=== PATIENT | male | born 1960 | race Caucasian/White ===

== ENCOUNTER 2018-09-14 10:17 | Emergency (ER) | payer OTHER ==
--- NOTE | 2018-09-14 10:35 | ED ---
Abdominal Pain/Male - HPI Summary HPI Summary: A 58 y/o M presents to ED with c/o suprapubic abd pain onset a week ago. The pain had been constant previous, but is now more intermittent. The pain radiates to his testicles and at certain times into his penis. Associated: v/d a week ago. Denies: CP, SOB, rash, swelling in legs, pain with BM, dysuria, hematuria. He saw Dr. Tobin, PCP, two days ago. He was supposed to be scheduled for a CT scan but it has not happened yet. Abd surgeries include partial colon removal, cholecystectomy. - History of Current Complaint Chief Complaint: EDAbdPain Stated Complaint: ABD PAIN PER PT Time Seen by Provider: 09/14/18 10:31 Hx Obtained From: Patient, Medical Records Onset/Duration: Gradual Onset, Lasting Weeks, Still Present Timing: Constant - at onset Severity Initially: Severe Severity Currently: Moderate Pain Intensity: 5 Pain Scale Used: 0-10 Numeric Location: Suprapubic Radiates: Yes Radiates to: Other - testicles, penis Associated Signs And Symptoms: Positive: Vomiting, Diarrhea, Other - neg: : SOB , rash, swelling in legs, pain with BM. Negative: Chest Pain, Urinary Symptoms - Allergies/Home Medications Allergies/Adverse Reactions: Allergies Allergy/AdvReac Type Severity Reaction Status Date / Time No Known Allergies Allergy Verified 09/14/18 10:25 Home Medications: Home Medications Citalopram Hydrobromide [Citalopram HBr] 40 mg PO DAILY 09/14/18 [History Confirmed 09/14/18] Fenofibrate [Tricor] 54 mg PO DAILY 09/14/18 [History Confirmed 09/14/18] Fenofibric Acid (Nf) [Fenofibric Acid] 1 cap PO DAILY 09/14/18 [History Confirmed 09/14/18] Losartan Potassium 25 mg PO DAILY 09/14/18 [History Confirmed 09/14/18] glipiZIDE [Glipizide ER] 10 mg PO DAILY 09/14/18 [History Confirmed 09/14/18] PMH/Surg Hx/FS Hx/Imm Hx Previously Healthy: No Endocrine/Hematology History: Reports: Hx Diabetes Cardiovascular History: Reports: Hx Hypercholesterolemia Denies: Hx Congestive Heart Failure, Hx Hypertension, Hx Pacemaker/ICD GI History: Reports: Hx Diverticulosis - partial colectomy, Hx Gall Bladder Disease - cholecystectomy, Other GI Disorders - colonic polyps, divertiulosis History: Reports: Other Problems/Disorders - diabetes Sensory History: Denies: Hx Hearing Aid Neurological History: Reports: Other Neuro Impairments/Disorders - present confused, fatique, numbness face Psychiatric History: Denies: Hx Panic Disorder - Surgical History Surgery Procedure, Year, and Place: gallbladder removed, diverticulitis(partial bowel removal) Hx Anesthesia Reactions: No Infectious Disease History: No Infectious Disease History: Denies: Traveled Outside the [place] in Last 30 Days - Family History Known Family History: Positive: Cardiac Disease - bro, [place] - 48 y/o, Diabetes, Other - stroke - Social History Occupation: Employed Full-time Lives: With Family Alcohol Use: None Substance Use Type: Reports: None Smoking Status (MU): Current Every Day Smoker Type: Cigarettes Amount Used/How Often: 1/2 ppd Length of Time of Smoking/Using Tobacco: 30 years Have You Smoked in the Last Year: Yes Review of Systems Negative: Chest Pain Negative: Shortness Of Breath Positive: Abdominal Pain - suprapubic, Vomiting, Diarrhea Positive: pain - in testicles, penis. Negative: dysuria, hematuria, other - neg : pain with BM Negative: Edema Negative: Rash All Other Systems Reviewed And Are Negative: Yes Physical Exam - Summary Physical Exam Summary: Constitutional: Well-developed, Well-nourished, Alert. (-) Distressed Skin: Warm, Dry HENT: Normocephalic; Atraumatic Eyes: Conjunctiva normal Neck: Musculoskeletal ROM normal neck. (-) JVD, (-) Stridor, (-) Tracheal deviation Cardio: Rhythm regular, rate normal, Heart sounds normal; Intact distal pulses; The pedal pulses are 2+ and symmetric. Radial pulses are 2+ and symmetric. (-) Murmur Pulmonary/Chest wall: Effort normal. (-) Respiratory distress, (-) Wheezes, (-) Rales Abd: Soft, (-) Distension, (-) Guarding, (-) Rebound, L mid and lower abd discomfort, R mid and suprapubic tenderness, no palpable hernias : TTP of L testicle, no palpable hernias bilaterally Musculoskeletal: (-) Edema Lymph: (-) Cervical adenopathy Neuro: Alert, Oriented x3 Psych: Mood and affect Normal Triage Information Reviewed: Yes Vital Signs On Initial Exam: Initial Vitals Temp Pulse Resp BP Pulse Ox 97.3 F 72 16 138/78 99 09/14/18 10:21 09/14/18 10:21 09/14/18 10:21 09/14/18 10:21 09/14/18 10:21 Vital Signs Reviewed: Yes Diagnostics - Vital Signs Vital Signs Temp Pulse Resp BP Pulse Ox 09/14/18 10:21 97.3 F 72 16 138/78 99 - Laboratory Result Diagrams: 09/14/18 11:17 09/14/18 11:17 Lab Statement: Any lab studies that have been ordered have been reviewed, and results considered in the medical decision making process. - CT A/P CT CT Interpretation Completed By: Radiologist Summary of CT Findings: IMPRESSION: No obstructive uropathy is noted. Normal appendix. No hernias are noted. No evidence of bowel obstruction is noted. Hepatic steatosis. Patient is status post cholecystectomy. ED provider has reviewed this report. - Ultrasound No standard instances Ultrasound Interpretation Completed By: Radiologist Summary of Ultrasound Findings: TESTICULAR US IMPRESSION: 1. NO EVIDENCE FOR TESTICULAR TORSION OR EPIDIDYMITIS. 2. SMALL BILATERAL HYDROCELES. 3. NO ABNORMALITY IS SEEN TO CORRESPOND WITH THE PATIENT'S PALPABLE ABNORMALITY. ED provider has reviewed this report. Abdominal Pain Male Course/Dx - Course Course Of Treatment: Patient is a 58 y/o M presenting with suprapubic abd pain radiating to testicles and penis onset a week ago. PE finds L mid and lower abd discomfort, R mid and suprapubic tenderness, no palpable hernias, TTP of L testicle. Labwork shows Hgb: 12.9, Hct: 38. Glucose: 205. AST: 12. Lipase: 968. UA shows 1+ glucose. Testicular US shows "1. NO EVIDENCE FOR TESTICULAR TORSION OR EPIDIDYMITIS. 2. SMALL BILATERAL HYDROCELES. 3. NO ABNORMALITY IS SEEN TO CORRESPOND WITH THE PATIENT'S PALPABLE ABNORMALITY." ABD/PEL CT shows "No obstructive uropathy is noted. Normal appendix. No hernias are noted. No evidence of bowel obstruction is noted. Hepatic steatosis. Patient is status post cholecystectomy.". Consulted with Dr. Mena, urology, who recommends treating patient as if it's epididymitis, starting him on Bactrim. Will discharge patient home to f/u with Dr. Garay, GI and Dr. Mena, uro. Patient given one dose of Bactrim in ED. - Diagnoses Provider Diagnoses: Elevated lipase, Epididymitis - Provider Notifications Discussed Care Of Patient With: Abran Mena - urology Time Discussed With Above Provider: 14:55 Instructed by Provider To: Other - Recommends treating patient as if it's epididymitis, start on Bactrim. Discharge - Sign-Out/Discharge Documenting (check all that apply): Patient Departure - D/C Patient Received Moderate/Deep Sedation with Procedure: No - Discharge Plan Condition: Stable Disposition: HOME Prescriptions: Sulfamethox/Trimethoprim DS* [Bactrim DS 800/160 TAB*] 1 tab PO BID #19 tab Patient Education Materials: Pancreatitis (ED), Epididymitis (ED), Non- Alcoholic Fatty Liver Disease (ED) Print Language: SWISS Referrals: Martha Garay MD [Medical Doctor] - Rishi Tobin MD [Primary Care Provider] - Abran Mena MD [Medical Doctor] - - Billing Disposition and Condition Condition: STABLE Disposition: Home - Attestation Statements Document Initiated by Scribe: Yes Documenting Scribe: Jameson Ivy Provider For Whom Scribe is Documenting (Include Credential): Dr. Sherly Moody MD Scribe Attestation: I, Jameson Ivy, neeruibed for Dr. Sherly Moody MD on at 1516. Scribe Documentation Reviewed: Yes Provider Attestation: The documentation as recorded by the Jameson mehta accurately reflects the service I personally performed and the decisions made by me, Dr. Sherly Moody MD Status of Scribe Document: Viewed
[2018-09-14 11:32] LABS: ABS Basophils 0.1 10^3/ul (0-0.2); ABS Eosinophils 0.3 10^3/ul (0-0.6); ABS Lymphocytes 2.6 10^3/ul (1.0-4.8); ABS Monocytes 0.9 10^3/ul (0-0.8); ABS Neutrophils 6.8 10^3/ul (1.5-7.7); Eosinophil % 2.7 %; Hematocrit 38 % (42-52); Hemoglobin 12.9 g/dL (14.0-18.0); Lymphocyte % 24.5 %; Mean Corpuscular HGB Conc 34 g/dL (31-36); Mean Corpuscular Hemoglobin 30 pg (27-31); Mean Corpuscular Volume 86 fL (80-94); Mean Platelet Volume 8.8 fL (7.4-10.4); Platelet Count 235 10^3/uL (150-450); Red Blood Count 4.36 10^6 /uL (4.18-5.48); Red Cell Distribution Width 14 % (10.5-15); White Blood Count 10.6 10^3/uL (3.5-10.8)
[2018-09-14 11:52] LABS: Albumin 4.2 g/dL (3.2-5.2); Albumin/Globulin Ratio 1.6 (1-3); BUN/Creatinine Ratio 18.7 (8-20); C Reactive Protein 4.2 mg/L (<8.01); Calcium 9.7 mg/dL (8.6-10.3); EGFR African American 102.8 (>60); Globulin 2.6 g/dL (2-4); Potassium 4.1 mmol/L (3.5-5.0); Total Bilirubin 0.3 mg/dL (0.2-1.0); Total Protein 6.8 g/dL (6.4-8.9)
[2018-09-14] MEDS ORDERED: Iodixanol* (CONTRAST) 320 MG/ML 100 ML SDV IV ONE (12:17)
[2018-09-14 13:42] LABS: Urine Appearance Clear; Urine Bilirubin Negative (Negative); Urine Blood Negative (Negative); Urine Color Yellow; Urine Glucose 1+(50 mg/dL) (Negative); Urine Ketones Negative (Negative); Urine Nitrite Negative (Negative); Urine Protein Negative (Negative); Urine Specific Gravity 1.017 (1.010-1.030); Urine Urobilinogen Negative (Negative)
[2018-09-14] MEDS ORDERED: Sulfamethox/Trimethoprim DS 800/160* TAB PO ONE (14:58)
[2018-09-14 15:14] VITALS: BP 114/65
== END 2018-09-14 15:13 | disposition home or self-care (01) ==
LOC: ED 10:17
DX: N45.1 Epididymitis (principal); K76.0 Fatty (change of) liver, not elsewhere classified; R79.89 Other specified abnormal findings of blood chemistry; N43.3 Hydrocele, unspecified; E11.9 Type 2 diabetes mellitus without complications; E78.00 Pure hypercholesterolemia, unspecified; K57.90 Diverticulosis of intestine, part unspecified, without perforation or abscess without bleeding; F17.210 Nicotine dependence, cigarettes, uncomplicated; Z79.84 Long term (current) use of oral hypoglycemic drugs; Z90.49 Acquired absence of other specified parts of digestive tract
CPT/HCPCS: 36415; 74177; 76870; 80053; 81003; 83690; 85025; 86140; 99283; A9270-GY; Q9967

== ENCOUNTER 2020-04-23 09:15 | Observation (INO) ==
[2020-04-23] MEDS ORDERED: Nitro 2% OINT (Nitroglycerin) 1 INCH/PAK TOPICAL ONE (10:18)
[2020-04-23] MEDS ORDERED: Al Hydrox/Mg Hydrox/Simet LIQ 30 ML UDC PO ONE (10:18)
[2020-04-23 11:30] LABS: ALT 17 U/L (7-52); Albumin 4.6 g/dL (3.2-5.2); Albumin/Globulin Ratio 1.6 (1-3); Alkaline Phosphatase 48 U/L (34-104); BUN/Creatinine Ratio 19.8 (8-20); Blood Urea Nitrogen 19 mg/dL (6-24); CO2 Carbon Dioxide 21 mmol/L (22-32); Calcium 10.2 mg/dL (8.6-10.3); Chloride 102 mmol/L (101-111); Creatine Kinase 43 U/L (10-223); EGFR Non-African American 79.4 (>60); Globulin 2.9 g/dL (2-4); Glucose 126 mg/dL (70-100); Sodium 133 mmol/L (135-145); Total Protein 7.5 g/dL (6.4-8.9)
[2020-04-23 12:14] LABS: ABS Basophils 0.1 10^3/ul (0-0.2); ABS Eosinophils 0.2 10^3/ul (0-0.6); ABS Lymphocytes 2.9 10^3/ul (1.0-4.8); ABS Monocytes 1.2 10^3/ul (0-0.8); ABS Neutrophils 9.2 10^3/ul (1.5-7.7); Eosinophil % 1.3 %; Hematocrit 43 % (42-52); Hemoglobin 14.8 g/dL (14.0-18.0); Lymphocyte % 21.2 %; Mean Corpuscular HGB Conc 34 g/dL (31-36); Mean Corpuscular Hemoglobin 30 pg (27-31); Mean Corpuscular Volume 88 fL (80-94); Mean Platelet Volume 9.7 fL (7.4-10.4); Platelet Count 273 10^3/uL (150-450); Red Cell Distribution Width 13 % (10-15); White Blood Count 13.6 10^3/uL (3.5-10.8)
[2020-04-23 12:18] LABS: Troponin I 0.01 ng/mL (<0.03)
[2020-04-23 12:33] LABS: Anion Gap 10 mmol/L (2-11)
[2020-04-23 20:03] LABS: Troponin I 0.01 ng/mL (<0.03)
[2020-04-23 20:14] LABS: Potassium Redraw 4.1 mmol/L (3.5-5.0)
[2020-04-24] MEDS ORDERED: Regadenoson 0.4 MG/5 ML SYRINGE ONE (08:52)
[2020-04-24] MEDS ORDERED: Aminophylline 25 MG/ML VIAL ONE (08:52)
[2020-04-24] MEDS ORDERED: FENOFIBRIC ACID 135 MG PO SCH (09:00)
[2020-04-24] MEDS ORDERED: Influenza VAC *QUAD* 2020-21* 0.5 ML SYRINGE IM ONE (09:00)
[2020-04-24 11:25] VITALS: BP 137/75
[2020-04-24 11:58] LABS: Influenza A Molecular Negative (Negative); Influenza B Molecular Negative (Negative)
[2020-04-24 13:39] LABS: C Reactive Protein 4.49 mg/L (<8.01)
[2020-04-24 14:09] LABS: TSH Ultra Thyroid Stim Horm 0.96 mcIU/mL (0.34-5.60)
== END 2020-04-24 15:10 | disposition home or self-care (01) ==
LOC: ED 09:15 → MED 09:15
PROVIDERS: ADMIT Student in an Organized Health Care Education/Training Program; ATTEND Student in an Organized Health Care Education/Training Program